=== PATIENT | female | born 1940 | race Caucasian/White ===

== ENCOUNTER 2017-11-01 07:51 | Day surgery (SDC) | payer MEDICARE, BC ==
[~2017-11-01 07:51] MED LIST: LIDOCAINE 1% PF 2 ML VIAL. ID; PROCHLORPERAZINE 10 MG/2 ML VIAL. IV; fentaNYL PF VIAL 100 MCG/2 ML VIAL IV
[2017-11-01] MEDS ORDERED: SCOPOLAMINE 1.5MG PATCH. TD (08:46)
[2017-11-01] MEDS ORDERED: PROPOFOL 20 ML IV (08:57)
[2017-11-01] MEDS ORDERED: LIDOCAINE 2% PF Vial for OR 5 ML VIAL. (08:57)
[2017-11-01] MEDS ORDERED: fentaNYL PF VIAL 100 MCG/2 ML VIAL ×2 (08:57→10:06)
[2017-11-01] MEDS: IV RINGERS,LACTATED 1000ML 1,000 ML IV (09:01)
[2017-11-01] MEDS: SCOPOLAMINE 1.5MG PATCH. TD (09:01)
[2017-11-01] MEDS ORDERED: IV 1/2 NORMAL SALINE 1,000 ML IV (09:29)
[2017-11-01] MEDS ORDERED: MORPHINE SULFATE 2 MG/ML DISP.SYRIN. IV (09:30)
[2017-11-01] MEDS ORDERED: HYDROcodone/APAP 7.5/325MG 1 TAB TABLET PO (09:30)
[2017-11-01] MEDS ORDERED: ONDANSETRON PF 4 MG/2 ML VIAL. IV (09:30)
[2017-11-01] MEDS ORDERED: DEXTROSE 50% 25 GM / 50ML DISP.SYRIN. IV (09:30)
[2017-11-01] MEDS ORDERED: POLYETHYLENE GLYCOL 3350 17 GM PACKET. PO (09:30)
[2017-11-01] MEDS ORDERED: CLINDAMYCIN 900MG PREMIX 50 ML IV (09:45)
[2017-11-01] MEDS ORDERED: PHENYLEPHRINE 10 MG/ML VIAL. (09:49)
[2017-11-01] MEDS: CLINDAMYCIN 900MG PREMIX 50 ML IV (09:52)
[2017-11-01] MEDS: LIDOCAINE 1% PF 30 ML VIAL. (10:03)
[2017-11-01] MEDS: BUPIVACAINE MPF 0.5% 30 ML VIAL. IJ (10:03)
[2017-11-01] MEDS ORDERED: DEXAMETHASONE SOD PHOS 20 MG/5 ML VIAL. (10:13)
[2017-11-01] MEDS ORDERED: ONDANSETRON PF 4 MG/2 ML VIAL. (10:13)
[2017-11-01] MEDS ORDERED: SEVOFLURANE 61 TO 120 MINUTES. IH (10:19)
[2017-11-01] MEDS: fentaNYL PF VIAL 100 MCG/2 ML VIAL IV ×3 (11:57→14:00)
[2017-11-01] MEDS ORDERED: HYDROcodone/APAP 5/325MG 1 TAB TABLET PO ×2 (13:15→13:30)
[2017-11-01] MEDS: HYDROcodone/APAP 7.5/325MG 1 TAB TABLET PO (13:20)
[2017-11-01] MEDS ORDERED: HYDROcodone/APAP 5/325MG 1 TAB TABLET ×2 (13:20→13:22)
[2017-11-02] MEDS ORDERED: MAGNESIUM HYDROXIDE 2,400 MG/30 ML ORAL.SUSP. PO (06:00)
[2017-11-02] MEDS ORDERED: SENNOSIDES/DOCUSATE 8.6/50MG TABLET. PO (09:00)
[2017-11-02] MEDS ORDERED: MULTIVITAMIN with MINERAL TABLET. PO (09:00)
[2017-11-02] MEDS ORDERED: BISACODYL 10 MG SUPP.RECT. PR (16:00)
== END 2017-11-01 14:25 | disposition home or self-care (01) ==
LOC: SURG 07:51
DX: S82.852A Displaced trimalleolar fracture of left lower leg, initial encounter for closed fracture (principal); I10 Essential (primary) hypertension; E78.00 Pure hypercholesterolemia, unspecified; Z98.890 Other specified postprocedural states; F17.210 Nicotine dependence, cigarettes, uncomplicated; Z72.89 Other problems related to lifestyle; Z82.49 Family history of ischemic heart disease and other diseases of the circulatory system; Z79.899 Other long term (current) drug therapy; Z79.82 Long term (current) use of aspirin; Z88.0 Allergy status to penicillin; Z88.5 Allergy status to narcotic agent; W01.0XXA Fall on same level from slipping, tripping and stumbling without subsequent striking against object, initial encounter; Y93.01 Activity, walking, marching and hiking; Y92.096 Garden or yard of other non-institutional residence as the place of occurrence of the external cause; Y99.8 Other external cause status; Z90.710 Acquired absence of both cervix and uterus; Z90.49 Acquired absence of other specified parts of digestive tract; Z87.440 Personal history of urinary (tract) infections; Z95.5 Presence of coronary angioplasty implant and graft
CPT/HCPCS: 27822; 76000; A7015; C1713; J1100; J2001; J2405; J2704; J3010; J3490; J7120

== ENCOUNTER 2017-11-11 17:01 | Inpatient (IN) | payer MEDICARE, BC ==
[2017-11-11 20:32] LABS: BILIRUBIN,URINE SMALL (NEG); CLARITY,URINE CLEAR; COLOR,URINE AMBER; GLUCOSE,URINE 100 mg/dL (NEG); NITRITE,URINE NEGATIVE (NEG); PH,URINE 5.5; PROTEIN,URINE >=300 mg/dL (NEG-TRACE)
[2017-11-11 20:43] LABS: BACTERIA,URINE MODERATE /HPF (0-FEW); RBC,URINE 0 /HPF (0-2); SQUAMOUS EPITHELIAL CELL,UR MOD /LPF
[2017-11-11] MEDS: VANCOMYCIN PER PHARMACY MC (20:48)
[2017-11-11] MEDS: MEROPENEM 1 GM in IV NORMAL SALINE 100ML 100 ML IV (21:17)
[2017-11-11] MEDS: IV NORMAL SALINE 1000ML BAG 1,000 ML IV (21:18)
[2017-11-11] MEDS: LACTOBACILLUS RHAMNOSUS GG 1 CAPSULE. PO (21:19)
[2017-11-11 22:20] LABS: LACTIC ACID 0.8 mmol/L (0.4-2.0)
[2017-11-11] MEDS: VANCOMYCIN 2 GM in IV 1/2 NORMAL SALINE 500 ML IV (22:38)
[2017-11-12 05:31] LABS: BASO % 0 % (0-3); EOS % 0 % (0-3); HEMATOCRIT 36.8 % (36.0-47.0); HEMOGLOBIN 12.3 g/dL (12.0-15.5); LYMPH # 1.1 x10^3/uL (1.0-4.8); LYMPH % 5 % (24-48); MEAN CORPUSCULAR HEMOGLOBIN 32 pg (25-35); MEAN CORPUSCULAR HGB CONC 33 g/dL (31-37); MEAN CORPUSCULAR VOLUME 95 fL (79-100); MONO # 1.6 x10^3/uL (0.0-1.1); MONO % 7 % (0-9); NEUT # 19.4 x10^3uL (1.8-7.7); NEUT % 88 % (31-73); PLATELET COUNT 236 x10^3/uL (140-400); RED BLOOD COUNT 3.87 x10^6/uL (3.50-5.40); RED CELL DISTRIBUTION WIDTH 14.5 % (11.5-14.5); WHITE BLOOD COUNT 22.1 x10^3/uL (4.0-11.0)
[2017-11-12 05:41] LABS: ALBUMIN 2.4 g/dL (3.4-5.0); ALBUMIN/GLOBULIN RATIO 0.5 (1.0-1.7); ALK PHOS 148 U/L (46-116); ALT (SGPT) 111 U/L (14-59); ANION GAP 11 (6-14); AST (SGOT) 63 U/L (15-37); BLOOD UREA NITROGEN 35 mg/dL (7-20); BUN/CREATININE RATIO 21 (6-20); CALCIUM 8.6 mg/dL (8.5-10.1); CARBON DIOXIDE 23 mmol/L (21-32); CHLORIDE 94 mmol/L (98-107); CREATININE 1.7 mg/dL (0.6-1.0); GFR 29.1; GLUCOSE 72 mg/dL (70-99); POTASSIUM 4.1 mmol/L (3.5-5.1); SODIUM 128 mmol/L (136-145); TOTAL BILIRUBIN 1.4 mg/dL (0.2-1.0); TOTAL PROTEIN 6.9 g/dL (6.4-8.2)
[2017-11-12 05:44] LABS: ADD MAN DIFF? YES
[2017-11-12] MEDS: HYDROcodone/APAP 7.5/325MG 1 TAB TABLET PO ×2 (05:46→23:37)
[2017-11-12 06:09] LABS: THYROID STIM HORMONE (TSH) 0.696 uIU/mL (0.358-3.74)
[2017-11-12 07:28] LABS: % BANDS 2 % (0-9); % LYMPHS 9 % (24-48); % MONOS 1 % (0-10); % SEGS 88 % (35-66); PLT ESTIMATE ADEQUATE (ADEQUATE)
[2017-11-12] MEDS: LISINOPRIL 20 MG TABLET PO (08:39)
[2017-11-12] MEDS: LACTOBACILLUS RHAMNOSUS GG 1 CAPSULE. PO ×2 (08:39→21:59)
[2017-11-12] MEDS: ASPIRIN CHEWABLE 81 MG TABLET. PO (08:39)
[2017-11-12] MEDS: NICOTINE 21MG PATCH. TD (08:39)
[2017-11-12] MEDS: MEROPENEM 1 GM in IV NORMAL SALINE 100ML 100 ML IV ×2 (08:41→21:58)
[2017-11-12] MEDS: IV NORMAL SALINE 1000ML BAG 1,000 ML IV ×3 (09:24→18:40)
[2017-11-12] MEDS: VANCOMYCIN PER PHARMACY MC (11:37)
[2017-11-12] MEDS ORDERED: VANCOMYCIN 1 GM in IV NORMAL SALINE 250ML 250 ML IV (22:30)
[2017-11-13] MEDS: oxyCODONE IR 5 MG TABLET PO ×2 (00:51→07:18)
[2017-11-13] MEDS: HYDROcodone/APAP 7.5/325MG 1 TAB TABLET PO ×3 (03:38→19:37)
[2017-11-13] MEDS: IV NORMAL SALINE 1000ML BAG 1,000 ML IV ×3 (04:44→20:49)
[2017-11-13 04:47] LABS: ADD MAN DIFF? NO
[2017-11-13 05:14] LABS: BASO % 0 % (0-3); EOS % 0 % (0-3); HEMATOCRIT 33.9 % (36.0-47.0); HEMOGLOBIN 11.5 g/dL (12.0-15.5); LYMPH # 0.5 x10^3/uL (1.0-4.8); LYMPH % 3 % (24-48); MEAN CORPUSCULAR HEMOGLOBIN 32 pg (25-35); MEAN CORPUSCULAR HGB CONC 34 g/dL (31-37); MEAN CORPUSCULAR VOLUME 94 fL (79-100); MONO # 1.1 x10^3/uL (0.0-1.1); MONO % 6 % (0-9); NEUT % 91 % (31-73); PLATELET COUNT 198 x10^3/uL (140-400); RED CELL DISTRIBUTION WIDTH 14.2 % (11.5-14.5); WHITE BLOOD COUNT 18.6 x10^3/uL (4.0-11.0)
[2017-11-13 06:02] LABS: ALBUMIN 1.8 g/dL (3.4-5.0); ALBUMIN/GLOBULIN RATIO 0.5 (1.0-1.7); ALK PHOS 183 U/L (46-116); ALT (SGPT) 94 U/L (14-59); ANION GAP 11 (6-14); AST (SGOT) 61 U/L (15-37); BLOOD UREA NITROGEN 22 mg/dL (7-20); BUN/CREATININE RATIO 17 (6-20); CARBON DIOXIDE 21 mmol/L (21-32); CHLORIDE 99 mmol/L (98-107); CREATININE 1.3 mg/dL (0.6-1.0); GFR 39.7; GLUCOSE 127 mg/dL (70-99); POTASSIUM 3.6 mmol/L (3.5-5.1); SODIUM 131 mmol/L (136-145); TOTAL BILIRUBIN 1.1 mg/dL (0.2-1.0); TOTAL PROTEIN 5.8 g/dL (6.4-8.2)
[2017-11-13] MEDS: ASPIRIN CHEWABLE 81 MG TABLET. PO (08:56)
[2017-11-13] MEDS: LACTOBACILLUS RHAMNOSUS GG 1 CAPSULE. PO ×2 (08:56→20:49)
[2017-11-13] MEDS: POLYETHYLENE GLYCOL 3350 17 GM PACKET. PO (08:56)
[2017-11-13] MEDS: DOCUSATE SODIUM 100 MG CAPSULE. PO (08:56)
[2017-11-13] MEDS: NICOTINE 21MG PATCH. TD (08:57)
[2017-11-13] MEDS: MEROPENEM 1 GM in IV NORMAL SALINE 100ML 100 ML IV ×2 (08:57→20:49)
[2017-11-14] MEDS: HYDROcodone/APAP 7.5/325MG 1 TAB TABLET PO ×3 (03:12→21:02)
[2017-11-14 04:27] LABS: ADD MAN DIFF? NO
[2017-11-14 04:39] LABS: BASO % 0 % (0-3); EOS # 0.1 x10^3/uL (0.0-0.7); EOS % 1 % (0-3); HEMATOCRIT 32.2 % (36.0-47.0); HEMOGLOBIN 10.8 g/dL (12.0-15.5); LYMPH # 0.6 x10^3/uL (1.0-4.8); LYMPH % 4 % (24-48); MEAN CORPUSCULAR HEMOGLOBIN 32 pg (25-35); MEAN CORPUSCULAR HGB CONC 34 g/dL (31-37); MEAN CORPUSCULAR VOLUME 94 fL (79-100); MONO % 7 % (0-9); NEUT % 89 % (31-73); PLATELET COUNT 180 x10^3/uL (140-400); RED BLOOD COUNT 3.42 x10^6/uL (3.50-5.40); RED CELL DISTRIBUTION WIDTH 14.4 % (11.5-14.5); WHITE BLOOD COUNT 15.8 x10^3/uL (4.0-11.0)
[2017-11-14 05:02] LABS: ALBUMIN 1.5 g/dL (3.4-5.0); ALBUMIN/GLOBULIN RATIO 0.4 (1.0-1.7); ALK PHOS 206 U/L (46-116); ALT (SGPT) 87 U/L (14-59); ANION GAP 8 (6-14); AST (SGOT) 69 U/L (15-37); BLOOD UREA NITROGEN 22 mg/dL (7-20); BUN/CREATININE RATIO 17 (6-20); CALCIUM 7.9 mg/dL (8.5-10.1); CARBON DIOXIDE 22 mmol/L (21-32); CHLORIDE 102 mmol/L (98-107); CREATININE 1.3 mg/dL (0.6-1.0); GFR 39.7; GLUCOSE 90 mg/dL (70-99); POTASSIUM 3.8 mmol/L (3.5-5.1); SODIUM 132 mmol/L (136-145); TOTAL BILIRUBIN 1.2 mg/dL (0.2-1.0); TOTAL PROTEIN 5.4 g/dL (6.4-8.2)
[2017-11-14] MEDS: ASPIRIN CHEWABLE 81 MG TABLET. PO (08:57)
[2017-11-14] MEDS: LACTOBACILLUS RHAMNOSUS GG 1 CAPSULE. PO ×2 (08:57→21:02)
[2017-11-14] MEDS: NICOTINE 21MG PATCH. TD (08:59)
[2017-11-14] MEDS: MEROPENEM 1 GM in IV NORMAL SALINE 100ML 100 ML IV ×2 (09:01→21:02)
[2017-11-14] MEDS: IV NORMAL SALINE 1000ML BAG 1,000 ML IV ×2 (09:03→21:24)
[2017-11-14] MEDS: BISACODYL 5 MG TABLET.DR. PO (11:33)
[2017-11-14] MEDS: DOCUSATE SODIUM 100 MG CAPSULE. PO (21:02)
[2017-11-14] MEDS: POLYETHYLENE GLYCOL 3350 17 GM PACKET. PO (21:03)
[2017-11-15] MEDS: HYDROcodone/APAP 7.5/325MG 1 TAB TABLET PO ×4 (02:52→21:00)
[2017-11-15 06:59] LABS: ALBUMIN 1.6 g/dL (3.4-5.0); ALBUMIN/GLOBULIN RATIO 0.4 (1.0-1.7); ALK PHOS 221 U/L (46-116); ALT (SGPT) 75 U/L (14-59); ANION GAP 8 (6-14); AST (SGOT) 54 U/L (15-37); BLOOD UREA NITROGEN 17 mg/dL (7-20); BUN/CREATININE RATIO 14 (6-20); CALCIUM 7.7 mg/dL (8.5-10.1); CARBON DIOXIDE 22 mmol/L (21-32); CHLORIDE 100 mmol/L (98-107); CREATININE 1.2 mg/dL (0.6-1.0); GFR 43.6; GLUCOSE 87 mg/dL (70-99); SODIUM 130 mmol/L (136-145); TOTAL BILIRUBIN 0.9 mg/dL (0.2-1.0)
[2017-11-15 07:32] LABS: HEMATOCRIT 33.8 % (36.0-47.0); HEMOGLOBIN 11.6 g/dL (12.0-15.5); MEAN CORPUSCULAR HEMOGLOBIN 32 pg (25-35); MEAN CORPUSCULAR HGB CONC 34 g/dL (31-37); MEAN CORPUSCULAR VOLUME 93 fL (79-100); PLATELET COUNT 200 x10^3/uL (140-400); RED BLOOD COUNT 3.61 x10^6/uL (3.50-5.40); RED CELL DISTRIBUTION WIDTH 14.3 % (11.5-14.5); WHITE BLOOD COUNT 16.5 x10^3/uL (4.0-11.0)
[2017-11-15] MEDS: NICOTINE 21MG PATCH. TD (09:00)
[2017-11-15] MEDS: POLYETHYLENE GLYCOL 3350 17 GM PACKET. PO ×2 (09:05→20:59)
[2017-11-15] MEDS: ASPIRIN CHEWABLE 81 MG TABLET. PO (09:06)
[2017-11-15] MEDS: LACTOBACILLUS RHAMNOSUS GG 1 CAPSULE. PO ×2 (09:06→20:59)
[2017-11-15] MEDS: MEROPENEM 1 GM in IV NORMAL SALINE 100ML 100 ML IV ×2 (11:40→21:00)
[2017-11-15] MEDS: POTASSIUM CL 40MEQ IN 0.9%NACL 1,000 ML IV (11:41)
[2017-11-15] MEDS: DOCUSATE SODIUM 100 MG CAPSULE. PO (11:47)
[2017-11-16] MEDS: POTASSIUM CL 40MEQ IN 0.9%NACL 1,000 ML IV (03:29)
[2017-11-16 04:38] LABS: ANION GAP 7 (6-14); BLOOD UREA NITROGEN 15 mg/dL (7-20); CARBON DIOXIDE 24 mmol/L (21-32); CHLORIDE 103 mmol/L (98-107); CREATININE 1.1 mg/dL (0.6-1.0); GFR 48.2; GLUCOSE 95 mg/dL (70-99); POTASSIUM 3.8 mmol/L (3.5-5.1); SODIUM 134 mmol/L (136-145)
[2017-11-16] MEDS: NICOTINE 21MG PATCH. TD (09:00)
[2017-11-16] MEDS: ASPIRIN CHEWABLE 81 MG TABLET. PO (09:26)
[2017-11-16] MEDS: POLYETHYLENE GLYCOL 3350 17 GM PACKET. PO ×2 (09:26→21:17)
[2017-11-16] MEDS: LACTOBACILLUS RHAMNOSUS GG 1 CAPSULE. PO ×2 (09:26→21:17)
[2017-11-16] MEDS: MEROPENEM 1 GM in IV NORMAL SALINE 100ML 100 ML IV (09:26)
[2017-11-16] MEDS: HYDROcodone/APAP 7.5/325MG 1 TAB TABLET PO ×3 (11:35→21:25)
[2017-11-16] MEDS: CITALOPRAM 20 MG TABLET. PO (11:35)
[2017-11-16] MEDS: POTASSIUM CHLORIDE 20 MEQ TABLET.ER. PO ×2 (11:35→17:22)
[2017-11-17 04:19] LABS: HEMATOCRIT 34.6 % (36.0-47.0); HEMOGLOBIN 11.9 g/dL (12.0-15.5); MEAN CORPUSCULAR HEMOGLOBIN 32 pg (25-35); MEAN CORPUSCULAR HGB CONC 34 g/dL (31-37); MEAN CORPUSCULAR VOLUME 93 fL (79-100); PLATELET COUNT 192 x10^3/uL (140-400); RED BLOOD COUNT 3.72 x10^6/uL (3.50-5.40); RED CELL DISTRIBUTION WIDTH 14.3 % (11.5-14.5); WHITE BLOOD COUNT 12.8 x10^3/uL (4.0-11.0)
[2017-11-17 05:02] LABS: ALBUMIN 1.5 g/dL (3.4-5.0); ALBUMIN/GLOBULIN RATIO 0.3 (1.0-1.7); ALK PHOS 242 U/L (46-116); ALT (SGPT) 77 U/L (14-59); ANION GAP 4 (6-14); AST (SGOT) 70 U/L (15-37); BLOOD UREA NITROGEN 15 mg/dL (7-20); BUN/CREATININE RATIO 14 (6-20); CALCIUM 8.2 mg/dL (8.5-10.1); CARBON DIOXIDE 26 mmol/L (21-32); CHLORIDE 101 mmol/L (98-107); CREATININE 1.1 mg/dL (0.6-1.0); GFR 48.2; GLUCOSE 83 mg/dL (70-99); POTASSIUM 4.3 mmol/L (3.5-5.1); SODIUM 131 mmol/L (136-145)
[2017-11-17] MEDS: HYDROcodone/APAP 7.5/325MG 1 TAB TABLET PO ×4 (07:05→22:52)
[2017-11-17] MEDS: POLYETHYLENE GLYCOL 3350 17 GM PACKET. PO ×2 (07:48→21:00)
[2017-11-17] MEDS: ASPIRIN CHEWABLE 81 MG TABLET. PO (07:48)
[2017-11-17] MEDS: POTASSIUM CHLORIDE 20 MEQ TABLET.ER. PO ×3 (07:48→18:01)
[2017-11-17] MEDS: CITALOPRAM 20 MG TABLET. PO (07:48)
[2017-11-17] MEDS: LACTOBACILLUS RHAMNOSUS GG 1 CAPSULE. PO ×2 (07:48→22:52)
[2017-11-17] MEDS: NICOTINE 21MG PATCH. TD (07:51)
[2017-11-17] MEDS: MAGNESIUM CITRATE 296 ML SOLUTION. PO (11:46)
[2017-11-17] MEDS: oxyCODONE IR 5 MG TABLET PO (14:38)
[2017-11-18 04:18] LABS: HEMATOCRIT 35.3 % (36.0-47.0); HEMOGLOBIN 11.9 g/dL (12.0-15.5); MEAN CORPUSCULAR HEMOGLOBIN 31 pg (25-35); MEAN CORPUSCULAR HGB CONC 34 g/dL (31-37); MEAN CORPUSCULAR VOLUME 92 fL (79-100); PLATELET COUNT 207 x10^3/uL (140-400); RED BLOOD COUNT 3.83 x10^6/uL (3.50-5.40); RED CELL DISTRIBUTION WIDTH 14.5 % (11.5-14.5); WHITE BLOOD COUNT 12.1 x10^3/uL (4.0-11.0)
[2017-11-18 04:33] LABS: ALBUMIN 1.6 g/dL (3.4-5.0); ALBUMIN/GLOBULIN RATIO 0.3 (1.0-1.7); ALK PHOS 246 U/L (46-116); ALT (SGPT) 68 U/L (14-59); ANION GAP 2 (6-14); AST (SGOT) 64 U/L (15-37); BLOOD UREA NITROGEN 20 mg/dL (7-20); BUN/CREATININE RATIO 17 (6-20); CALCIUM 8.3 mg/dL (8.5-10.1); CARBON DIOXIDE 28 mmol/L (21-32); CHLORIDE 101 mmol/L (98-107); CREATININE 1.2 mg/dL (0.6-1.0); GFR 43.6; GLUCOSE 81 mg/dL (70-99); POTASSIUM 5.1 mmol/L (3.5-5.1); SODIUM 131 mmol/L (136-145); TOTAL BILIRUBIN 0.6 mg/dL (0.2-1.0); TOTAL PROTEIN 6.2 g/dL (6.4-8.2)
[2017-11-18] MEDS: NICOTINE 21MG PATCH. TD (09:00)
[2017-11-18] MEDS: POLYETHYLENE GLYCOL 3350 17 GM PACKET. PO ×2 (09:00→21:00)
[2017-11-18] MEDS: ASPIRIN CHEWABLE 81 MG TABLET. PO (10:16)
[2017-11-18] MEDS: POTASSIUM CHLORIDE 20 MEQ TABLET.ER. PO ×3 (10:16→15:39)
[2017-11-18] MEDS: CITALOPRAM 20 MG TABLET. PO (10:17)
[2017-11-18] MEDS: LACTOBACILLUS RHAMNOSUS GG 1 CAPSULE. PO ×2 (10:17→21:18)
[2017-11-18] MEDS: HYDROcodone/APAP 7.5/325MG 1 TAB TABLET PO ×2 (10:18→21:19)
[2017-11-19] MEDS: POLYETHYLENE GLYCOL 3350 17 GM PACKET. PO ×2 (07:29→21:00)
[2017-11-19] MEDS: NICOTINE 21MG PATCH. TD (07:29)
[2017-11-19] MEDS: LACTOBACILLUS RHAMNOSUS GG 1 CAPSULE. PO ×2 (09:34→22:03)
[2017-11-19] MEDS: CITALOPRAM 20 MG TABLET. PO (09:34)
[2017-11-19] MEDS: ASPIRIN CHEWABLE 81 MG TABLET. PO (09:34)
[2017-11-19 09:57] LABS: ANION GAP 5 (6-14); BLOOD UREA NITROGEN 25 mg/dL (7-20); CALCIUM 7.8 mg/dL (8.5-10.1); CARBON DIOXIDE 27 mmol/L (21-32); CHLORIDE 97 mmol/L (98-107); CREATININE 1.4 mg/dL (0.6-1.0); GFR 36.5; GLUCOSE 171 mg/dL (70-99); POTASSIUM 4.6 mmol/L (3.5-5.1); SODIUM 129 mmol/L (136-145)
[2017-11-19] MEDS: HYDROcodone/APAP 7.5/325MG 1 TAB TABLET PO (22:04)
[2017-11-20] MEDS: NICOTINE 21MG PATCH. TD (07:27)
[2017-11-20] MEDS: ASPIRIN CHEWABLE 81 MG TABLET. PO (08:19)
[2017-11-20] MEDS: CITALOPRAM 20 MG TABLET. PO (08:19)
[2017-11-20] MEDS: POLYETHYLENE GLYCOL 3350 17 GM PACKET. PO (08:19)
[2017-11-20] MEDS: LACTOBACILLUS RHAMNOSUS GG 1 CAPSULE. PO (08:19)
[2017-11-20 08:31] LABS: HEMOGLOBIN 11.9 g/dL (12.0-15.5); MEAN CORPUSCULAR HEMOGLOBIN 32 pg (25-35); MEAN CORPUSCULAR HGB CONC 34 g/dL (31-37); MEAN CORPUSCULAR VOLUME 94 fL (79-100); PLATELET COUNT 207 x10^3/uL (140-400); RED BLOOD COUNT 3.74 x10^6/uL (3.50-5.40); RED CELL DISTRIBUTION WIDTH 14.6 % (11.5-14.5); WHITE BLOOD COUNT 8.8 x10^3/uL (4.0-11.0)
[2017-11-20 09:10] LABS: ALBUMIN 1.7 g/dL (3.4-5.0); ALBUMIN/GLOBULIN RATIO 0.3 (1.0-1.7); ALK PHOS 198 U/L (46-116); ALT (SGPT) 77 U/L (14-59); ANION GAP 3 (6-14); AST (SGOT) 71 U/L (15-37); BLOOD UREA NITROGEN 25 mg/dL (7-20); BUN/CREATININE RATIO 17 (6-20); CALCIUM 8.1 mg/dL (8.5-10.1); CARBON DIOXIDE 29 mmol/L (21-32); CHLORIDE 100 mmol/L (98-107); CREATININE 1.5 mg/dL (0.6-1.0); GFR 33.7; GLUCOSE 126 mg/dL (70-99); POTASSIUM 4.4 mmol/L (3.5-5.1); SODIUM 132 mmol/L (136-145); TOTAL BILIRUBIN 0.6 mg/dL (0.2-1.0); TOTAL PROTEIN 6.6 g/dL (6.4-8.2)
== END 2017-11-20 13:15 | disposition home or self-care (01) | DRG 682 ==
LOC: 4 NORTH 17:01
DX: N17.9 Acute kidney failure, unspecified (principal); G93.41 Metabolic encephalopathy; E87.1 Hypo-osmolality and hyponatremia; N39.0 Urinary tract infection, site not specified; I25.10 Atherosclerotic heart disease of native coronary artery without angina pectoris; N39.41 Urge incontinence; F17.200 Nicotine dependence, unspecified, uncomplicated; E87.6 Hypokalemia; K80.20 Calculus of gallbladder without cholecystitis without obstruction; K76.0 Fatty (change of) liver, not elsewhere classified; D72.829 Elevated white blood cell count, unspecified; Z96.0 Presence of urogenital implants; E78.00 Pure hypercholesterolemia, unspecified; N28.1 Cyst of kidney, acquired; R79.89 Other specified abnormal findings of blood chemistry; R35.0 Frequency of micturition; Z16.11 Resistance to penicillins; I12.9 Hypertensive chronic kidney disease with stage 1 through stage 4 chronic kidney disease, or unspecified chronic kidney disease; K59.09 Other constipation; N18.9 Chronic kidney disease, unspecified; M19.90 Unspecified osteoarthritis, unspecified site; E78.5 Hyperlipidemia, unspecified; Z90.710 Acquired absence of both cervix and uterus; Z90.49 Acquired absence of other specified parts of digestive tract; Z90.722 Acquired absence of ovaries, bilateral; Z82.49 Family history of ischemic heart disease and other diseases of the circulatory system; Z88.0 Allergy status to penicillin; Z95.5 Presence of coronary angioplasty implant and graft; Z87.81 Personal history of (healed) traumatic fracture; Z88.5 Allergy status to narcotic agent
CPT/HCPCS: 36415; 76700; 78226; 80048; 80053; 81001; 82533; 83605; 84443; 85007; 85025; 85027; 87040; 87086; 96374; A9537; J2185; J3370; J3480; J7030

== ENCOUNTER 2017-12-25 09:13 | Inpatient (IN) | payer MEDICARE, BC ==
[~2017-12-25] VITALS: Ht 162.6 cm; Wt 90.0 kg
[~2017-12-25 09:13] MED LIST changes: +AMLO5TAB4 PO; +ASPI-630 PO; +ASPI325T8 PO; +ATORVASTATIN CA80 MG PO; +CIPR250T30 PO; +CITA20TA9 PO; +DOCU-109 PO; +ENOX40DI SQ; +GUAI600T47 PO; +IV RINGERS,LACTATED 1000ML 1,000 ML IV SCH; +LACT1CAP2 PO; -LIDOCAINE 1% PF 2 ML VIAL. ID; +LIDOCAINE 1% PF 2 ML VIAL. ID PRN; +LISI-334 PO; +MORPHINE SULFATE 2 MG/ML VIAL. IV PRN; +NICO1PAT21 TP; +NORCO PO; +ONDA8TAB12 PO; +ONDANSETRON PF 4 MG/2 ML VIAL. IV PRN; +OXYC10TA PO; +POLY17PO29 PO; -PROCHLORPERAZINE 10 MG/2 ML VIAL. IV; +PROCHLORPERAZINE 10 MG/2 ML VIAL. IV PRN; -fentaNYL PF VIAL 100 MCG/2 ML VIAL IV; +fentaNYL PF VIAL 100 MCG/2 ML VIAL IV PRN
[2017-12-25] MEDS ORDERED: LIDOCAINE 1% PF 30 ML VIAL. ONE (09:50)
[2017-12-25] MEDS ORDERED: BUPIVACAINE 0.5% 50 ML VIAL. ONE (09:50)
[2017-12-25] MEDS ORDERED: CLINDAMYCIN 900MG PREMIX 50 ML IV ONE ×2 (10:14→13:00)
[2017-12-25] MEDS ORDERED: SCOPOLAMINE 1.5MG PATCH. TD ONE (11:00)
[2017-12-25] MEDS ORDERED: MAGNESIUM HYDROXIDE 2,400 MG/30 ML ORAL.SUSP. PO PRN (12:00)
[2017-12-25] MEDS ORDERED: PROCHLORPERAZINE 10 MG/2 ML VIAL. IV PRN (12:00)
[2017-12-25] MEDS ORDERED: BISACODYL 10 MG SUPP.RECT. PR PRN (12:00)
[2017-12-25] MEDS ORDERED: DOCUSATE SODIUM 100 MG CAPSULE. PO PRN (12:00)
[2017-12-25] MEDS ORDERED: ZOLPIDEM 5 MG TABLET. PO PRN (12:00)
[2017-12-25] MEDS ORDERED: MORPHINE SULFATE 2 MG/ML VIAL. IV PRN (12:00)
[2017-12-25] MEDS ORDERED: DEXAMETHASONE SOD PHOS 20 MG/5 ML VIAL. ONE (12:03)
[2017-12-25] MEDS ORDERED: ONDANSETRON PF 4 MG/2 ML VIAL. ONE (12:03)
[2017-12-25] MEDS ORDERED: fentaNYL PF VIAL 100 MCG/2 ML VIAL ONE (12:17)
[2017-12-25] MEDS ORDERED: PROPOFOL 20 ML IV ONE (12:17)
[2017-12-25] MEDS ORDERED: ePHEDrine PF IN SALINE 50 MG/5 ML DISP.SYRIN IV ONE (12:17)
[2017-12-25] MEDS ORDERED: LIDOCAINE 2% PF Vial for OR 5 ML VIAL. ONE (12:17)
--- NOTE | 2017-12-25 14:12 | PDOC4 ---
Operative Note Operative Note Date of procedure: 12/25/2017 Surgeon: Serjio Hemphill Preoperative diagnosis: Wound dehiscence after operative fixation of left ankle Postoperative diagnosis: Same Procedure performed: #1 irrigation and debridement through fascia down to bone #2 application of wound VAC, less than 5 cm, to wound Tourniquet time: None used Anesthesia: Gen. Findings: No gross purulence, no obvious infection or necrotic tissue down deep , there was some necrotic tissue at the edges of the wound. Specimens tissue and swabs sent for microbiology. Blood loss: 10mL Reason for procedure: Patient is very pleasant 77-year-old female who I performed operative fixation of her left distal fibula several weeks ago. She had been residing at a facility and they had called telling me she had increased drainage from her incision. I'd see her back in clinic and discovered the wound dehiscence, was a small area, please see my outpatient notes for full details. Had a discussion of the risks, benefits, alternatives the above surgery with her family and they wish proceed. Description of procedure: Patient was greeted in the preoperative area by myself for the correct extremity was verified and marked. She was taken back to the operative suite and her antibiotics were started as she was brought back. Once in the operating room, she was transferred gently supine to the operating room table and secured to the bed with all pressure points padded and had successful induction of a general anesthetic. Padded bump under her left hip. We then prepped and drape left lower extremity using Betadine in our usual sterile fashion. We then conductor standard preoperative timeout. I then removed all the sutures from her incision and used a hemostat to explore the wound beginning with the open area distally. I found that it really did not track in the area that was open was approximately 1 cm in diameter. I freshen up the wound edges and then extended the open area 1 cm proximally and distally and then used a curet and Rongeur to debride the subcutaneous tissue. I sent samples prior to beginning my debridement. I then thoroughly irrigated out the operative field with sterile saline. The screws were solid. The fracture itself was inspected and showed some callus around it. After this, I irrigated everything out again and used a total of about 3000 mL of sterile saline. I then closed skin with 2-0 nylon in a mattress fashion, I was able to accomplish a tension-free closure. Given her history of wound dehiscence and smoking, I elected to place the Adaptic gauze followed by a 3-4 cm piece of wound VAC sponge on top of this and then sealed this off and applied the wound VAC. It had a good seal. We then cleansed and dried the leg and took our drapes down. She was then awakened from anesthesia transferred gently supine to the hospital bed and taken to PACU stable and extubated condition. Postoperative plan is to admit her to the floor. We will ask hospitalist and infectious disease to purchase pain in her care. SERJIO HEMPHILL II, MD Dec 25, 2017 14:11
[2017-12-25 14:30] VITALS: BP 128/68
[2017-12-25] MEDS: oxyCODONE IR 5 MG TABLET PO PRN (14:51)
[2017-12-25] MEDS ORDERED: IV NORMAL SALINE 1000ML BAG 1,000 ML IV SCH (15:00)
[2017-12-25 16:18] VITALS: BP 128/55
[2017-12-25 17:00] VITALS: BP 115/44
[2017-12-25 17:30] VITALS: BP 105/44
[2017-12-25 18:30] VITALS: BP 113/51
[2017-12-25] MEDS: SENNOSIDES/DOCUSATE 8.6/50MG TABLET. PO SCH (21:08)
[2017-12-25] MEDS: DOCUSATE SODIUM 100 MG CAPSULE. PO SCH (21:08)
[2017-12-25] MEDS: CLINDAMYCIN 900MG PREMIX 50 ML IV SCH (21:09)
[2017-12-25 23:00] VITALS: BP 129/61
[2017-12-26 03:00] VITALS: BP 139/64
[2017-12-26] MEDS: CLINDAMYCIN 900MG PREMIX 50 ML IV SCH (05:35)
[2017-12-26 07:00] VITALS: BP 122/54
[2017-12-26] MEDS: ASPIRIN CHEWABLE 81 MG TABLET. PO SCH (08:47)
[2017-12-26] MEDS: SENNOSIDES/DOCUSATE 8.6/50MG TABLET. PO SCH ×2 (08:47→20:51)
[2017-12-26] MEDS: CITALOPRAM 20 MG TABLET. PO SCH (08:47)
[2017-12-26] MEDS: ENOXAPARIN 40 MG/0.4 ML SYRINGE. SQ SCH (08:47)
[2017-12-26] MEDS: DOCUSATE SODIUM 100 MG CAPSULE. PO SCH ×2 (08:47→20:50)
[2017-12-26] MEDS ORDERED: POLYETHYLENE GLYCOL 3350 17 GM PACKET. PO PRN (09:00)
[2017-12-26] MEDS: NICOTINE 21MG PATCH. TD SCH (09:00)
--- NOTE | 2017-12-26 09:12 | PDOC ---
ORTHO PROGRESS NOTES Subjective Her pain is doing okay. No other complaints or concerns at this time Vitals Vital Signs Date Time Temp Pulse Resp B/P (MAP) Pulse Ox O2 Delivery O2 Flow Rate FiO2 12/26/17 07:00 98.1 68 18 122/54 (76) 90 Room Air 98.1 12/25/17 13:03 8 Notes She is awake and alert in bed. Examination of her left lower extremity reveals the edema that was around her ankle looks improved today. The wound VAC is in place with a good seal. Normal sensation and motor function is present in her operative extremity Assessment and Plan I spoke with Dr. Powell regarding the plan for her care. She can partial weight- bear. I would like her to keep the wound VAC in place. I think she will benefit from antibiotic treatment as well. We will await cultures. I would anticipate she will be ready for placement once we have wound VAC approval. CHASTITY HEMPHILL II, MD Dec 26, 2017 09:12
--- NOTE | 2017-12-26 09:22 | PDOC ---
Infectious Disease Note Vital Sign Vital Signs Vital Signs Date Time Temp Pulse Resp B/P (MAP) Pulse Ox O2 Delivery O2 Flow Rate FiO2 12/26/17 07:00 98.1 68 18 122/54 (76) 90 Room Air 98.1 12/25/17 13:03 8 Objective Assessment Ankle fracture s/p ORIF in october , then slight drainage with exposed hardware, s/ p I and D 12/25/17 HTN CAD Urinary retention with chronic heaton DAMARIS Plan Plan of Care cbc, cmp, sed rated wound vac zyvox and cefepime for now check intra op cultures d/w Dr Zepeda d/w Urology JARED ALCANTARA MD Dec 26, 2017 09:22
--- NOTE | 2017-12-26 09:27 | PDOC2 ---
UROLOGY CONSULT Date of Consult Date of Consult DATE: 12/26/17 TIME: 09:22 History of Present Illness Reason for Visit: This 77 year old female is known to us. We were consulted on a prior admission for urinary retention. At that time a heaton catheter was placed and she was seen again by Dr. Ayala on 12/04/17 for a heaton catheter change . At that time, the plan was to leave the heaton in place and have her return for one month for a cysto with UDS study. She is here this admission for orthopedics #1 irrigation and debridement through fascia down to bone #2 application of wound VAC, less than 5 cm, to wound per Dr. Zepeda, orthopedist who did this surgery yesterday (12/25/17). This was done for increased drainage, facility concern for infection. The current plan per orthopedics is to send her to rehabilitation as soon as possible. They are concerned about the heaton catheter and when it needs to be changed, also what our follow up plan is for the patient. Past Medical History Cardiovascular: HTN Pulmonary: No pertinent hx GI: No pertinent hx Heme/Onc: No pertinent hx Hepatobiliary: No pertinent hx Psych: No pertinent hx Musculoskeletal: low back pain, Osteoarthritis Rheumatologic: No pertinent hx Infectious disease: No pertinent hx Renal/: Chronic renal insuff Past Surgical History Past Surgical History: Other Family History Family History: Coronary Artery Disease Social History ALCOHOL: occassional Drugs: None Lives: with Family Current Medications Current Medications Current Medications Aspirin (Children'S Aspirin) 81 mg DAILY PO Last administered on 12/26/17at 08: 47; Start 12/26/17 at 09:00 Bisacodyl (Dulcolax Supp) 10 mg PRN DAILY PRN [place] CONSTIPATION; Start 12/25/17 at 12:00 Bupivacaine HCl (Marcaine 0.5%) 50 ml STK-MED ONCE .ROUTE ; Start 12/25/17 at 09 :50; Stop 12/25/17 at 10:52; Status DC Cefepime HCl 1 gm/ Dextrose 50 ml @ 100 mls/hr Q8HRS IV ; Start 12/26/17 at 14: 00; Status UNV Citalopram Hydrobromide (CeleXA) 20 mg DAILY PO Last administered on 12/26/17at 08:47; Start 12/26/17 at 09:00 Clindamycin Phosphate 50 ml @ 100 mls/hr 1X ONCE IV Last administered on 12/25at 12:33; Start 12/25/17 at 13:00; Stop 12/25/17 at 13:29; Status DC Clindamycin Phosphate 50 ml @ 100 mls/hr Q8HRS IV Last administered on at 05:35; Start 12/25/17 at 22:00; Stop 12/26/17 at 09:20; Status DC Clindamycin Phosphate 50 ml @ As Directed STK-MED ONCE IV ; Start 12/25/17 at 10 :14; Stop 12/25/17 at 10:15; Status DC Dexamethasone Sodium Phosphate (Decadron) 20 mg STK-MED ONCE .ROUTE ; Start at 12:03; Stop 12/25/17 at 12:04; Status DC Docusate Sodium (Colace) 100 mg BID PO Last administered on 12/26/17at 08:47; Start 12/25/17 at 21:00 Docusate Sodium (Colace) 100 mg PRN BID PRN PO CONSTIPATION; Start 12/25/17 at 12:00 Enoxaparin Sodium (Lovenox 40mg Syringe) 40 mg DAILY SQ Last administered on at 08:47; Start 12/26/17 at 09:00 Ephedrine Sulfate (ePHEDrine PF IN SALINE SYRINGE) 50 mg STK-MED ONCE IV ; Start 12/25/17 at 12:17; Stop 12/25/17 at 12:18; Status DC Fentanyl Citrate (Fentanyl 2ml Vial) 100 mcg STK-MED ONCE .ROUTE ; Start at 12:17; Stop 12/25/17 at 12:18; Status DC Guaifenesin (Mucinex) 600 mg BID PO Last administered on 12/26/17at 08:47; Start 12/25/17 at 21:00 Lidocaine HCl (Lidocaine 1% Pf) 30 ml STK-MED ONCE .ROUTE ; Start 12/25/17 at 09 :50; Stop 12/25/17 at 10:51; Status DC Lidocaine HCl (Lidocaine Pf 2% Vial) 5 ml STK-MED ONCE .ROUTE ; Start 12/25/17 at 12:17; Stop 12/25/17 at 12:18; Status DC Linezolid (Zyvox) 600 mg BID PO ; Start 12/26/17 at 21:00; Status UNV Magnesium Hydroxide (Milk Of Magnesia) 2,400 mg PRN Q12HR PRN PO CONSTIPATION; Start 12/25/17 at 12:00 Morphine Sulfate (Morphine Sulfate) 1 mg PRN Q1HR PRN IV PAIN; Start 12/25/17 at 12:00 Nicotine (Nicoderm Cq 21mg) 1 patch DAILY TD ; Start 12/26/17 at 09:00 Ondansetron HCl (Zofran) 4 mg STK-MED ONCE .ROUTE ; Start 12/25/17 at 12:03; Stop 12/25/17 at 12:04; Status DC Oxycodone HCl (Roxicodone) 5 mg PRN Q3HRS PRN PO BREAKTHROUGH PAIN Last administered on 12/25/17at 14:51; Start 12/25/17 at 12:00 Polyethylene Glycol (miraLAX PACKET) 17 gm PRN DAILY PRN PO CONSTIPATION; Start 12/26/17 at 09:00 Prochlorperazine Edisylate (Compazine) 10 mg PRN Q6HRS PRN IV NAUSEA/VOMITING; Start 12/25/17 at 12:00 Propofol 20 ml @ As Directed STK-MED ONCE IV ; Start 12/25/17 at 12:17; Stop at 12:18; Status DC Scopolamine (Transderm-Scop) 1 patch 1X ONCE TD Last administered on at 11:47; Start 12/25/17 at 11:00; Stop 12/25/17 at 11:01; Status DC Senna/Docusate Sodium (Senna Plus) 1 tab BID PO Last administered on 12/26/17at 08:47; Start 12/25/17 at 21:00 Sodium Chloride 1,000 ml @ 100 mls/hr Q10H IV ; Start 12/25/17 at 15:00; Stop 12/26/17 at 00:59; Status DC Zolpidem Tartrate (Ambien) 5 mg PRN QHS PRN PO INSOMNIA, MAY REPEAT IN 1HR; Start 12/25/17 at 12:00 Allergies Allergies: Coded Allergies: Penicillins (Verified Allergy, Intermediate, 12/25/17) codeine (Verified Allergy, Intermediate, 12/25/17) TOLERATES OXYCODONE ROS Review Of Systems: CONSTITUTIONAL: No fever or chills EYES: No recent changes SKIN: No rash or itching CARDIOVASCULAR: No chest pain, syncope, palpitations, or edema RESPIRATORY: No SOB or cough GASTROINTESTINAL: No nausea, vomiting or abdominal pain NEUROLOGICAL: No headaches or weakness ENDOCRINE: No cold or heat intolerance GENITOURINARY: + retention, heaton catheter in place MUSCULOSKELETAL: + here for ortho LYMPHATICS: No enlarged lymph nodes PSYCHIATRIC: No anxiety or depression Physical Exam Physical Exam: General: Pleasant, no acute distress, well groomed Eyes: conjunctiva anicteric, eyes full range of motion ENT: moist oral mucosa, normal dentition Neck: Trachea midline, no masses Respiratory: unlabored breathing, not using accessory muscles, no crackles or wheezes Cardiovascular: Regular rate and rhythm, no peripheral edema Abdomen: nontender, nondistended, no hepatosplenomegaly, no masses Skin: no rashes or skin lesions on visualized skin Psych: normal mood, affect. Alert and oriented x 3. Vitals VITALS Vital Signs Date Time Temp Pulse Resp B/P (MAP) Pulse Ox O2 Delivery O2 Flow Rate FiO2 12/26/17 07:00 98.1 68 18 122/54 (76) 90 Room Air 98.1 12/25/17 13:03 8 Assessment/Plan Assessment/Plan Urinary Retention-Leave heaton catheter in place for now. Patient is due for a change by 01/04/18, orders entered for this by GEORGES Campbell. Pt could go to rehabilitation facility as soon as other specialties are ready with orders to change out catheter at that time, or if she is still in house the heaton change can be done here. An appointment has been secured for her to see Dr. Ayala on 01/29/18 for a cystoscopy at 1040 am. At that time, the second catheter change can be done and the UDS study ordered. This should give the patient enough time to recover from her surgery and get her ankle healed. Appointment card given to patient, all questions answered. Will follow peripherally until discharge. CARINA CAMPBELL APRN Dec 26, 2017 09:27
[2017-12-26 10:13] LABS: BASO % 0 % (0-3); EOS # 0.1 x10^3/uL (0.0-0.7); EOS % 1 % (0-3); HEMATOCRIT 32.8 % (36.0-47.0); HEMOGLOBIN 11.2 g/dL (12.0-15.5); LYMPH # 2.8 x10^3/uL (1.0-4.8); LYMPH % 27 % (24-48); MEAN CORPUSCULAR HEMOGLOBIN 32 pg (25-35); MEAN CORPUSCULAR HGB CONC 34 g/dL (31-37); MEAN CORPUSCULAR VOLUME 95 fL (79-100); MONO # 0.4 x10^3/uL (0.0-1.1); MONO % 4 % (0-9); NEUT # 7.2 x10^3uL (1.8-7.7); NEUT % 69 % (31-73); PLATELET COUNT 209 x10^3/uL (140-400); RED BLOOD COUNT 3.47 x10^6/uL (3.50-5.40); RED CELL DISTRIBUTION WIDTH 15.1 % (11.5-14.5); WHITE BLOOD COUNT 10.5 x10^3/uL (4.0-11.0)
[2017-12-26 10:25] LABS: ALBUMIN 2.4 g/dL (3.4-5.0); ALBUMIN/GLOBULIN RATIO 0.7 (1.0-1.7); CALCIUM 8.1 mg/dL (8.5-10.1); CREATININE 1.6 mg/dL (0.6-1.0); GFR 31.3; POTASSIUM 4.1 mmol/L (3.5-5.1); TOTAL BILIRUBIN 0.3 mg/dL (0.2-1.0); TOTAL PROTEIN 5.9 g/dL (6.4-8.2)
[2017-12-26 11:00] VITALS: BP 134/51
--- NOTE | 2017-12-26 12:17 | CONS ---
DATE OF CONSULTATION: 12/25/2017 REASON FOR CONSULTATION: Medical management. HISTORY OF PRESENT ILLNESS: The patient is a 77-year-old female patient who apparently has ankle fracture, status post open reduction and internal fixation in October, was noted to have exposed hardware with slight drainage and apparently, she was admitted to undergo incision and drainage. It was done on 12/25/2017, and she was started on IV antibiotic in the form of cefepime as well as linezolid as per the Infectious Disease recommendation. When I saw her this morning, she denied any complaint, in particular denied any pain, chills, rigors or fever. PAST MEDICAL HISTORY: Significant for hypertension; hyperlipidemia; coronary artery disease, status post PCI with stent deployment about 7 years ago. She has also questionable nephrotic syndrome as well as nicotine dependence. She is also known to have urinary retention, requiring indwelling Guo catheter. PAST SURGICAL HISTORY: Significant for tonsillectomy, appendectomy, total abdominal hysterectomy and bilateral salpingo-oophorectomy, left groin abscess drainage and most recently, she underwent open reduction and internal fixation of trimalleolar fracture of the right ankle joint and yesterday, she underwent incision and drainage of her surgical site as she has exposed hardware. FAMILY HISTORY: Positive for coronary artery disease. 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 She lives with her adopted son. She unfortunately continues to smoke heavily. She does not drink alcohol or use any recreational drugs. ALLERGIES: SHE IS ALLERGIC TO PENICILLIN. MEDICATIONS: She is currently on the following medications: She is on Nicoderm 21 mg patch topically daily, Lovenox 40 mg subcutaneous daily, aspirin 81 mg once a day, Celexa 20 mg daily, Mucinex 600 mg twice a day, lactobacillus acidophilus 1 capsule twice a day, Colace 100 mg twice a day, polyethylene glycol 17 grams daily and hydrocodone/APAP 7.5/325 one tablet every 4 hours as needed. REVIEW OF SYSTEMS: As per history of present illness. PHYSICAL EXAMINATION: GENERAL: When I examined her, she looked well and was clearly in no apparent respiratory distress, pale, but no jaundice, cyanosis or thyromegaly. No jugular venous distention. No lower limb edema. VITAL SIGNS: Her heart rate was 68, blood pressure 122/54, temperature was 98.1, respiratory rate was 18 and oxygen saturation was 90% on room air. HEENT: Examination of the head, eyes, ears, nose and throat showed normocephalic, atraumatic. NECK: Supple. HEART: Showed normal first and second heart sounds. No gallop, rub or murmur. CHEST: Clear to auscultation. No crepitation or rhonchi. ABDOMEN: Distended, soft and nontender. No guarding or rigidity. No organomegaly. All hernial orifices intact. Bowel sounds normal. NEUROLOGIC: She is awake, alert, responding appropriately. All cranial nerves intact. She moves upper extremities to much good extent than lower extremities. The patient has a wound VAC on the outer aspect of left ankle joint. LABORATORY DATA: Her lab work this morning showed a white cell count of 10,500, hemoglobin 11, hematocrit 33, MCV 95 and platelet count of 209,000. Her chemistry showed a serum sodium 135, potassium 4.1, chloride 102, bicarbonate 26, anion gap of 7, BUN 22, creatinine 1.6, estimated GFR was 31 mL per minute, her glucose 150 and calcium was 8.1. Total bilirubin, AST, ALT, alkaline phosphatase were normal. Total protein 5.9. Albumin was 2.4. SUMMARY: In summary, this is a 77-year-old female patient, who underwent a sustained ankle fracture, status post open reduction and internal fixation in October. She has slight drainage with exposed hardware. She is status post incision and drainage on 12/25/2017. She has multiple other medical problems including: A. Hypertension. B. Hyperlipidemia. C. Coronary artery disease, status post percutaneous coronary intervention with stent deployment. PLAN: My plan is to obviously continue with the current antibiotic treatment as recommended by Infectious Disease. She will continue to have an indwelling Guo catheter. Continue with DVT prophylaxis. Continue with pain management and await the result of the culture and sensitivity. AUGUSTO MORRIS MD DR: BERNIE/raman JOB#: [id number] / [id number]
[2017-12-26] MEDS: LINEZOLID 600 MG TABLET PO SCH ×2 (12:37→20:50)
[2017-12-26] MEDS: oxyCODONE IR 5 MG TABLET PO PRN (12:37)
[2017-12-26] MEDS: CEFEPIME HCL IV Push 1 GM VIAL. IVP SCH ×2 (12:38→20:56)
[2017-12-26] MEDS ORDERED: CEFEPIME HCL 1 GM in IV DEXTROSE 5% 50 ML IV SCH (14:00)
[2017-12-26 15:00] VITALS: BP 112/59
[2017-12-26 19:00] VITALS: BP 107/57
[2017-12-26] MEDS: LACTOBACILLUS RHAMNOSUS GG 1 CAPSULE. PO SCH (20:49)
[2017-12-26 23:00] VITALS: BP 150/68
--- NOTE | 2017-12-27 02:30 | CONS ---
DATE OF CONSULTATION: 12/26/2017 REQUESTING PHYSICIAN: Dr. Zepeda. REASON FOR CONSULTATION: Exposed hardware in the ankle. HISTORY OF PRESENT ILLNESS: This is a 77-year-old female who has had ankle fracture from a fall, ORIF was done with hardware placement on 11/01/2017. The patient subsequently was discharged and now was admitted yesterday and underwent I and D for exposed hardware and a slight drainage. As per my communication with Dr. Zepeda, it did not look grossly purulent or any necrotic much area, but intraoperative cultures have been taken and a wound VAC has been placed with I and D done. Unfortunately, the healing has not happened enough to be able to take out the hardware yet. The patient denies any fever, denies any nausea, vomiting, diarrhea. Denies any chest pain, shortness of breath, abdominal pain, urinary symptoms or bowel symptoms. The patient does have urinary retention with a Guo catheter in place. PAST MEDICAL HISTORY: Positive for hypertension, hyperlipidemia, coronary artery disease, renal insufficiency. The patient also has urinary retention with Guo catheter in place, ankle fracture status post ORIF on 11/01/2017 and now I and D done on 12/25/2017. The patient also has had appendicectomy, tonsillectomy, total abdominal hysterectomy. SOCIAL HISTORY: Negative for smoking, alcohol, illicit drug use. ALLERGIES: SHE IS LISTED ALLERGIC TO PENICILLIN. She does not remember, it was when she was a child. REVIEW OF SYSTEMS: As per HPI, all other systems reviewed are negative. CURRENT MEDICATIONS: The patient is on clindamycin. PHYSICAL EXAMINATION: GENERAL: Alert and oriented female, not in any distress. VITAL SIGNS: Stable, afebrile. HEENT: NAD. NECK: Supple, no JVP, no lymphadenopathy. LUNGS: Clear. HEART: S1, S2 regular. ABDOMEN: Benign. EXTREMITIES: No edema, cyanosis. SKIN: Unremarkable. Ankle has a wound VAC in place, which was not opened. It is supposed to change tomorrow. We will look at it tomorrow. There is no surrounding erythema. NEUROLOGIC: The patient is neurologically intact. LABORATORY DATA: All pending. I ordered it actually. The patient had an ankle x-ray on last month and it was unremarkable. IMPRESSION: 1. Ankle fracture status post open reduction internal fixation on 11/01, status post some slight drainage with exposed hardware, status post I and D on 12/25/2017. 2. Hypertension. 3. Coronary artery disease. 4. Urinary retention with chronic Guo. 5. Renal insufficiency. RECOMMENDATIONS: We will get CBC, CMP, sed rate. We will continue wound VAC. We will start Zyvox and cefepime for the time being. We will check intraoperative cultures and we will decide on what kind of oral or IV antibiotics that she is going to go to rehab. I did discuss with Dr. Zepeda. His plan is to, once there is a healing into the ankle then to take out the hardware. Discussion with Urology was also done. Thank you very much, Dr. Zepeda, for giving me the opportunity to participate in this patient's care. JARDE ALCANTARA MD DR: PRIMITIVO/raman JOB#: [id number] / [id number]
[2017-12-27 02:57] VITALS: BP 135/76
[2017-12-27] MEDS: CEFEPIME HCL IV Push 1 GM VIAL. IVP SCH ×2 (06:15→14:00)
[2017-12-27 07:15] VITALS: BP 139/68
[2017-12-27] MEDS: NICOTINE 21MG PATCH. TD SCH (09:00)
[2017-12-27] MEDS: LINEZOLID 600 MG TABLET PO SCH (09:05)
[2017-12-27] MEDS: DOCUSATE SODIUM 100 MG CAPSULE. PO SCH (09:05)
[2017-12-27] MEDS: oxyCODONE IR 5 MG TABLET PO PRN (09:05)
[2017-12-27] MEDS: ASPIRIN CHEWABLE 81 MG TABLET. PO SCH (09:05)
[2017-12-27] MEDS: LACTOBACILLUS RHAMNOSUS GG 1 CAPSULE. PO SCH (09:05)
[2017-12-27] MEDS: SENNOSIDES/DOCUSATE 8.6/50MG TABLET. PO SCH (09:06)
[2017-12-27] MEDS: ENOXAPARIN 40 MG/0.4 ML SYRINGE. SQ SCH (09:06)
[2017-12-27] MEDS: CITALOPRAM 20 MG TABLET. PO SCH (09:06)
--- NOTE | 2017-12-27 09:37 | PDOC ---
Infectious Disease Note Subjective Subjective pt is feeling good ROS ROS no n/v/d/sob/fever Vital Sign Vital Signs Vital Signs Date Time Temp Pulse Resp B/P (MAP) Pulse Ox O2 Delivery O2 Flow Rate FiO2 12/27/17 09:05 Room Air 12/27/17 07:15 97.5 67 18 139/68 (91) 95 97.5 Physical Exam PHYSICAL EXAM GENERAL: Alert and oriented female, not in any distress. VITAL SIGNS: Stable, afebrile. HEENT: NAD. NECK: Supple, no JVP, no lymphadenopathy. LUNGS: Clear. HEART: S1, S2 regular. ABDOMEN: Benign. EXTREMITIES: No edema, cyanosis. SKIN: Unremarkable. Ankle has a wound VAC in place, removed, no wound, vac was on incision, no discharge now, There is no surrounding erythema. NEUROLOGIC: The patient is neurologically intact. Labs Lab Laboratory Tests Test 12/26/17 09:50 White Blood Count 10.5 x10^3/uL (4.0-11.0) Red Blood Count 3.47 x10^6/uL (3.50-5.40) Hemoglobin 11.2 g/dL (12.0-15.5) Hematocrit 32.8 % (36.0-47.0) Mean Corpuscular Volume 95 fL (79-100) Mean Corpuscular Hemoglobin 32 pg (25-35) Mean Corpuscular Hemoglobin Concent 34 g/dL (31-37) Red Cell Distribution Width 15.1 % (11.5-14.5) Platelet Count 209 x10^3/uL (140-400) Neutrophils (%) (Auto) 69 % (31-73) Lymphocytes (%) (Auto) 27 % (24-48) Monocytes (%) (Auto) 4 % (0-9) Eosinophils (%) (Auto) 1 % (0-3) Basophils (%) (Auto) 0 % (0-3) Neutrophils # (Auto) 7.2 x10^3uL (1.8-7.7) Lymphocytes # (Auto) 2.8 x10^3/uL (1.0-4.8) Monocytes # (Auto) 0.4 x10^3/uL (0.0-1.1) Eosinophils # (Auto) 0.1 x10^3/uL (0.0-0.7) Basophils # (Auto) 0.0 x10^3/uL (0.0-0.2) Erythrocyte Sedimentation Rate 38 (0-25) Sodium Level 135 mmol/L (136-145) Potassium Level 4.1 mmol/L (3.5-5.1) Chloride Level 102 mmol/L (98-107) Carbon Dioxide Level 26 mmol/L (21-32) Anion Gap 7 (6-14) Blood Urea Nitrogen 22 mg/dL (7-20) Creatinine 1.6 mg/dL (0.6-1.0) Estimated GFR (Cockcroft-Gault) 31.3 BUN/Creatinine Ratio 14 (6-20) Glucose Level 150 mg/dL (70-99) Calcium Level 8.1 mg/dL (8.5-10.1) Total Bilirubin 0.3 mg/dL (0.2-1.0) Aspartate Amino Transf (AST/SGOT) 21 U/L (15-37) Alanine Aminotransferase (ALT/SGPT) 52 U/L (14-59) Alkaline Phosphatase 117 U/L (46-116) Total Protein 5.9 g/dL (6.4-8.2) Albumin 2.4 g/dL (3.4-5.0) Albumin/Globulin Ratio 0.7 (1.0-1.7) Micro ANAEROBIC-AEROBIC CULTURE PENDING ANAEROBIC RES 1 PENDING AEROBIC CULT PENDING AEROBIC RES 1 PENDING GRAM STAIN Final Final report GRAM STAIN RES 1 Final Comment No white blood cells seen. GRAM STAIN RES 2 Final No organisms seen Performed at: - [facility], [place], [place] [id number] Anatomy And Physiology Instructor: YANN Quinteros MD, Phone: [phone] Objective Assessment Ankle fracture s/p ORIF in october , then slight drainage with exposed hardware, s/ p I and D 12/25/17 HTN CAD Urinary retention with chronic heaton DAMARIS Plan Plan of Care wound vac zyvox and cefepime for now,,, likely to change to po if ok with Dr Zepeda , will follow cultures, check intra op cultures d/w JARED Ortega MD Dec 27, 2017 09:37
--- NOTE | 2017-12-27 10:22 | DISCH ---
DISCHARGE INSTRUCTIONS Condition on Discharge Condition on Discharge: Stable Activity After Discharge Activity Instructions for Disc: Other, see below Other activity instructions: Partial weight bearing Bathing Instructions: Shower-keep dressing dry Lifting Instructions after Dis: No heavy lifting, No pulling or pushing, Do not lift >10 pounds Weight Bearing Status after Di: Partial weight bearing, Non weight bearing Diet after Discharge Diet after Discharge: Regular Wound Incision Care Wound/Incision Care: Ice to area for comfort, Keep wound/cast CDI, Keep wound elevated, Do not change dressing Other wound/incision instructi: nursing to change VAC over incision, using petrolatum gauze, then VAC spong Checks after Discharge Checks after discharge: Check blood press - daily Contacting the DR. after DC Call your doctor for: Concerns you may have Follow-Up Follow up with: [facility] in 2 wks Treatment/Equipment after DC Adaptive Equipment Issued: Brace/splint CHASTITY HEMPHILL II, MD Dec 27, 2017 10:22
[2017-12-27 11:02] VITALS: BP 117/68
[2017-12-27 14:59] VITALS: BP 122/71
--- NOTE | 2017-12-27 21:17 | PDOC ---
ORTHO PROGRESS NOTES Subjective No complaints Vitals Vital Signs Date Time Temp Pulse Resp B/P (MAP) Pulse Ox O2 Delivery O2 Flow Rate FiO2 12/27/17 17:02 Room Air 12/27/17 14:59 97.2 61 20 122/71 (88) 95 97.2 Labs Laboratory Tests Test 12/26/17 09:50 White Blood Count 10.5 x10^3/uL (4.0-11.0) Red Blood Count 3.47 x10^6/uL (3.50-5.40) Hemoglobin 11.2 g/dL (12.0-15.5) Hematocrit 32.8 % (36.0-47.0) Mean Corpuscular Volume 95 fL (79-100) Mean Corpuscular Hemoglobin 32 pg (25-35) Mean Corpuscular Hemoglobin Concent 34 g/dL (31-37) Red Cell Distribution Width 15.1 % (11.5-14.5) Platelet Count 209 x10^3/uL (140-400) Neutrophils (%) (Auto) 69 % (31-73) Lymphocytes (%) (Auto) 27 % (24-48) Monocytes (%) (Auto) 4 % (0-9) Eosinophils (%) (Auto) 1 % (0-3) Basophils (%) (Auto) 0 % (0-3) Neutrophils # (Auto) 7.2 x10^3uL (1.8-7.7) Lymphocytes # (Auto) 2.8 x10^3/uL (1.0-4.8) Monocytes # (Auto) 0.4 x10^3/uL (0.0-1.1) Eosinophils # (Auto) 0.1 x10^3/uL (0.0-0.7) Basophils # (Auto) 0.0 x10^3/uL (0.0-0.2) Erythrocyte Sedimentation Rate 38 (0-25) Sodium Level 135 mmol/L (136-145) Potassium Level 4.1 mmol/L (3.5-5.1) Chloride Level 102 mmol/L (98-107) Carbon Dioxide Level 26 mmol/L (21-32) Anion Gap 7 (6-14) Blood Urea Nitrogen 22 mg/dL (7-20) Creatinine 1.6 mg/dL (0.6-1.0) Estimated GFR (Cockcroft-Gault) 31.3 BUN/Creatinine Ratio 14 (6-20) Glucose Level 150 mg/dL (70-99) Calcium Level 8.1 mg/dL (8.5-10.1) Total Bilirubin 0.3 mg/dL (0.2-1.0) Aspartate Amino Transf (AST/SGOT) 21 U/L (15-37) Alanine Aminotransferase (ALT/SGPT) 52 U/L (14-59) Alkaline Phosphatase 117 U/L (46-116) Total Protein 5.9 g/dL (6.4-8.2) Albumin 2.4 g/dL (3.4-5.0) Albumin/Globulin Ratio 0.7 (1.0-1.7) Notes Incision c/d/i no erythema Assessment and Plan coag neg Staph on Cx will check with ID to see abx preference ok to transfer CHASTITY HEMPHILL II, MD Dec 27, 2017 21:17
--- NOTE | 2017-12-29 10:13 | PDOC3 ---
Discharge Summary Visit Information Date of Admission: Dec 25, 2017 Date of Discharge: Dec 27, 2017 Admitting Diagnosis: wound dehiscence after ORIF left ankle Brief Hospital Course Allergies Allergies Coded Allergies Type Severity Reaction Last Updated Verified Penicillins Allergy Intermediate 12/25/17 Yes codeine Allergy Intermediate 12/25/17 Yes Brief Hospital Course Ms. Chinchilla is a 77 old who underwent ORIF left ankle fracture with myself several weeks ago, she had increasing drainage and dehiscence of the wound, her facility contacted me and had seen her in my outpatient clinic. Please see those notes for full details. We had a discussion of the risks, benefits, and alternatives to admission for irrigation and debridement, cultures, wound VAC and she and her daughter wish to proceed. Surgery was tolerated well by the patient. She recovered well from anesthesia in the PACU was taken up to the general surgical floor. Her postoperative course was essentially uneventful. Infectious disease and primary care did participate in her care as well. We followed the cultures. She is maintaining her activities of living well enough to be transferred back to her facility. She remained hemodynamically stable and afebrile. Normal bowel and bladder function was present time of discharge. The wound VAC was in place and the incision located at the time of discharge. Discharge Information Condition at Discharge: Stable Follow Up: Weeks Disposition/Orders: D/C to Another Facility Scheduled Aspirin (Aspirin) 81 Mg Tab.chew, 1 TAB PO DAILY, #30 Ref 3 (Reported) Entered as Reported by: GURMEET ROSAS on 10/31/17 1154 Last Taken: Unknown Dose on 12/22/17 Last Action: Continued on 12/25/17 1156 by ANSON HEMPHILL MD Citalopram Hydrobromide (Celexa) 20 Mg Tablet, 1 TAB PO DAILY, #90 Ref 3 ( Reported) Entered as Reported by: GURMEET ROSAS on 12/22/17 1218 Last Taken: Unknown Dose on 12/24/17 Last Action: Continued on 12/25/17 1156 by ANSON HEMPHILL MD Enoxaparin Sodium (Lovenox) 40 Mg/0.4 Ml Disp.syrin, 0.4 ML SQ DAILY, #10 ( Reported) Entered as Reported by: GURMEET ROSAS on 12/22/17 1219 Last Taken: Unknown Dose on 12/23/17 Last Action: Continued on 12/25/171155 by ANSON HEMPHILL MD Guaifenesin (Mucinex) 600 Mg Tablet.er, 1 TAB PO BID, #14 (Reported) Entered as Reported by: GURMEET ROSAS on 10/31/171216 Last Taken: Unknown Dose on 12/24/17 Last Action: Continued on 12/25/171155 by ANSON HEMPHILL MD Lactobacillus Acidophilus (Acidophilus) 1 Each Capsule, 1 EACH PO BID, (Reported ) Entered as Reported by: GURMEET ROSAS on 10/31/171205 Last Taken: Unknown Dose on 12/24/17 Last Action: HELD on 12/25/171155 by ANSON HEMPHILL MD Nicotine (NICODERM CQ 21mg) 1 Each Patch.td24, 1 PATCH TP DAILY, #28 Ref 1 ( Reported) Entered as Reported by: GURMEET ROSAS on 10/31/171215 Last Action: Converted on 12/25/171155 by ANSON HEMPHILL MD Scheduled PRN Docusate Sodium (Colace) 100 Mg Capsule, 1 CAP PO PRN BID PRN for CONSTIPATION, #30 (Reported) Entered as Reported by: GURMEET ROSAS on 10/31/171156 Last Taken: Unknown Dose on 12/18/17 Last Action: Continued on 12/25/171155 by ANSON HEMPHILL MD Polyethylene Glycol 3350 (Miralax) 17 Gm Powd.pack, 1 PACKET PO PRN DAILY PRN for CONSTIPATION, #30 Ref 3 (Reported) Entered as Reported by: GURMEET ROSAS on 10/31/171155 Last Taken: Unknown Dose on 12/24/17 Last Action: Converted on 12/25/171155 by ANSON HEMPHILL MD [[place]] , 7.5-325 MG PO PRN Q4HRS PRN for PAIN, (Reported) Entered as Reported by: GURMEET ROSAS on 10/31/171201 Last Taken: Unknown Dose on 12/19/17 Last Action: HELD on 12/25/171155 by ANSON HEMPHILL MD Discontinued Medications Oxycodone Hcl (Oxycodone Hcl) 10 Mg Tablet, 1 TAB PO PRN Q4HRS PRN for PAIN, #90 (Reported) Entered as Reported by: GURMEET ROSAS on 10/31/17 1203 Last Action: Discontinued on 12/25/17 1002 by SERA TATE Patient Instructions Patient Instructions She'll be transferred back to her facility. Partial weightbearing. She will continue the wound VAC. Antibiotics were discussed with infectious disease. She will follow up with me in 2 weeks, sooner should a problem arise. Worrisome signs and symptoms that should prompt a phone call to my office were discussed as well. CHASTITY HEMPHILL II, MD Dec 29, 2017 10:13
== END 2017-12-27 15:30 | DRG 901 ==
LOC: OPSVCIP 09:13 → 4 NORTH 14:02
PROVIDERS: ADMIT Orthopaedic Surgery Sports Medicine; ATTEND Orthopaedic Surgery Sports Medicine
PROC: 0JBR0ZZ Excision of Left Foot Subcutaneous Tissue and Fascia, Open Approach (ICD-10-PCS; principal; 2017-12-25 12:15)
DX: T81.31XA Disruption of external operation (surgical) wound, not elsewhere classified, initial encounter (principal); E43 Unspecified severe protein-calorie malnutrition; N17.9 Acute kidney failure, unspecified; Y83.8 Other surgical procedures as the cause of abnormal reaction of the patient, or of later complication, without mention of misadventure at the time of the procedure; I25.10 Atherosclerotic heart disease of native coronary artery without angina pectoris; R33.9 Retention of urine, unspecified; E78.5 Hyperlipidemia, unspecified; F17.200 Nicotine dependence, unspecified, uncomplicated; N18.9 Chronic kidney disease, unspecified; I12.9 Hypertensive chronic kidney disease with stage 1 through stage 4 chronic kidney disease, or unspecified chronic kidney disease; Y92.89 Other specified places as the place of occurrence of the external cause; Z88.6 Allergy status to analgesic agent; Z88.0 Allergy status to penicillin; Z82.49 Family history of ischemic heart disease and other diseases of the circulatory system; Z95.5 Presence of coronary angioplasty implant and graft; Z90.710 Acquired absence of both cervix and uterus
CPT/HCPCS: 36415; 80053; 85025; 85651; 87071; 87075; A7015; J0692; J1100; J1650; J2001; J2405; J2704; J3010; J3490; J7120; A4461